=== PATIENT | male | born 1990 | race Caucasian/White ===

== ENCOUNTER 2018-07-06 14:20 | Emergency (ER) | payer OTHER ==
[2018-07-06 15:29] VITALS: BP 123/93
--- NOTE | 2018-07-06 16:21 | UC ---
Skin Complaint HPI - HPI Summary HPI Summary: noticed a scrape on the medial surface of the right ankle about 3 or 4 days ago , and began applying a topical antibiotic. In the past day, this has become more sore, with some increase in drainage from the site. - History of Current Complaint Chief Complaint: UCSkin Time Seen by Provider: 07/06/18 16:16 Stated Complaint: RT ANKLE SKIN COMPLAINT Hx Obtained From: Patient Onset/Duration: Gradual Onset, Lasting Days - 4 Skin Exposure Onset/Duration: Hours Ago Timing: Constant Onset Severity: Mild Current Severity: Mild Pain Intensity: 0 Location: Discrete - superior to the right medial malleolus. Character: Pruritus, Redness, Painful Aggravating Factor(s): Touch Alleviating Factor(s): Nothing Associated Signs & Symptoms: Positive: Drainage Related History: Trauma - cannot recall the trauma which caused the skin avulsion. - Allergy/Home Medications Allergies/Adverse Reactions: Allergies Allergy/AdvReac Type Severity Reaction Status Date / Time No Known Allergies Allergy Verified 07/06/18 15:23 Home Medications: Home Medications Neomycin/Bacitracin/Polymyxinb [Triple Antibiotic Ointment] 1 each TP BID PRN [History Confirmed 07/06/18] PMH/Surg Hx/FS Hx/Imm Hx Previously Healthy: Yes - Surgical History Surgical History: None - Family History Known Family History: Positive: Non-Contributory - Social History Occupation: Unemployed Lives: With Family Alcohol Use: Rare Substance Use Type: None Smoking Status (MU): Never Smoked Tobacco - Immunization History Most Recent Tetanus Shot: unknown Review of Systems All Other Systems Reviewed And Are Negative: Yes Constitutional: Positive: Negative Skin: Positive: Rash, Other - deep abrasion Eyes: Positive: Negative ENT: Positive: Negative Respiratory: Positive: Negative Cardiovascular: Positive: Negative Gastrointestinal: Positive: Negative Genitourinary: Positive: Negative Motor: Positive: Negative Neurovascular: Positive: Negative Musculoskeletal: Positive: Negative Neurological: Positive: Negative Psychological: Positive: Negative Is Patient Immunocompromised?: No Physical Exam Triage Information Reviewed: Yes Vital Signs: Initial Vital Signs Temp 99.1 F 07/06/18 15:23 Pulse 99 07/06/18 15:23 Resp 15 07/06/18 15:23 BP 123/93 07/06/18 15:23 Pulse Ox 98 07/06/18 15:23 ENT: Positive: Normal ENT inspection Respiratory: Positive: Lungs clear, Normal breath sounds Cardiovascular: Positive: RRR, No Murmur Musculoskeletal Exam: Normal Musculoskeletal: Positive: Strength Intact, ROM Intact - at right ankle without pain. Neurological: Positive: Alert, Muscle Tone Normal Skin Exam: Other - right medial ankle with skin avulstion 13mm x 4 mm at widest , with 2 cm area of surrounding erythema with small papules. Surround area of cellulitis about 8 cm, no lymphangitis. Diagnostics - Laboratory Diagnostic Studies Completed/Ordered: cellulitis right ankle following skin avulsion. Course/Dx - Course Course Of Treatment: cephalexin and topical antibiotic - Differential Diagnoses - Skin Complaint Differential Diagnoses: Allergic Reaction, Cellulitis - Diagnoses Provider Diagnosis: Cellulitis of right ankle, Allergic reaction due to correct medicinal substance properly administered Discharge - Sign-Out/Discharge Documenting (check all that apply): Patient Departure All imaging exams completed and their final reports reviewed: No Studies - Discharge Plan Condition: Stable Disposition: HOME Prescriptions: Cephalexin CAP* [Keflex 500 CAP*] 500 mg PO TID #21 cap Mupirocin 2% OINT* [Bactroban 2 % Oint*] 1 applic TOPICAL BID #1 tube Patient Education Materials: Cellulitis (ED), Contact Dermatitis (ED) Referrals: Keena Benoit PA [Primary Care Provider] - Additional Instructions: Take cephalexin three times daily for treatment of cellulitis. Continue cleansing the wound with soap and water, but do not scrub at it, and lightly dry. Apply topical bactroban after cleaning, and keep the wound lightly covered until healed, likely about 7 to 10 days. If the area of redness expands or becomes more tender, please return for reevaluation. - Billing Disposition and Condition Condition: STABLE Disposition: Home
== END 2018-07-06 17:02 | disposition home or self-care (01) ==
LOC: UCCORT 14:20
DX: L03.115 Cellulitis of right lower limb (principal); T50.905A Adverse effect of unspecified drugs, medicaments and biological substances, initial encounter; Y92.9 Unspecified place or not applicable
CPT/HCPCS: 99212; G0463